=== PATIENT | female | born 1970 | race Caucasian/White ===

== ENCOUNTER 2016-06-11 09:12 | Emergency (ER) | payer BC ==
[2016-06-11 09:57] LABS: Basophils % (Auto) 0.3 % (0.0-1.8); Eosinophils % (Auto) 4.7 % (0.0-4.3); Hematocrit 40.3 % (30.3-42.9); Mean Corpuscular HGB Conc 32 % (30-34); Mean Corpuscular Hemoglobin 31 pg (28-32); Mean Corpuscular Volume 94 fl (79-97); Platelet Count 150 K/mm3 (140-440); Red Blood Count 4.27 M/mm3 (3.65-5.03); Red Cell Distribution Width 13.3 % (13.2-15.2); White Blood Count 8.3 K/mm3 (4.5-11.0)
[2016-06-11 10:15] LABS: Anion Gap 19 mmol/L; Blood Urea Nitrogen 12 mg/dL (7-17); Carbon Dioxide 21 mmol/L (22-30); Chloride 98.1 mmol/L (98-107); Glucose 103 mg/dL (65-100); Potassium 3.6 mmol/L (3.6-5.0); Sodium 134 mmol/L (137-145)
[2016-06-11 10:21] LABS: Bilirubin,Urine MOD (Negative); Blood,Urine NEG (Negative); Ketones,Urine TR mg/dL (Negative); Leukocyte Esterase,Urine MOD (Negative); Mucus,Urine 3+ /HPF; Nitrite,Urine NEG (Negative); Urobilinogen,Urine < 2.0 mg/dL (<2.0)
--- NOTE | 2016-06-11 10:41 | Emergency Department Report ---
ED General Adult HPI - General Chief complaint: Nausea/Vomiting/Diarrhea Stated complaint: SHAKING Time Seen by Provider: 06/11/16 10:39 Source: patient Mode of arrival: Ambulatory Limitations: No Limitations - History of Present Illness Initial comments: States that she has had nausea and vomiting which began last night. She says that she has some abdominal discomfort with vomiting only. She is not complaining of any pain now. She states that she might of had a chill. States that she took her temperature last night and it was 99 "something". She denies diarrhea. She denies any signs of GI bleeding. She states that she does not have anything like this before. She feels somewhat weak. The patient denies any medical history or surgery. She works at this facility. -: Gradual, hour(s) Associated Symptoms: denies other symptoms Treatments Prior to Arrival: none - Related Data Previous Rx's Medication Instructions Recorded Last Taken Type Ondansetron [Zofran Odt] 4 mg PO Q6H #7 tab.rapdis 06/11/16 Unknown Rx Allergies Allergy/AdvReac Type Severity Reaction Status Date / Time raw carrots Allergy Swelling Uncoded 07/11/15 12:38 soy milk Allergy Swelling Uncoded 07/11/15 12:38 ED Review of Systems ROS: Stated complaint: SHAKING Other details as noted in HPI Constitutional: denies: chills, fever Eyes: denies: eye pain, eye discharge, vision change ENT: denies: ear pain, throat pain Respiratory: denies: cough, shortness of breath, wheezing Cardiovascular: denies: chest pain, palpitations Endocrine: no symptoms reported Gastrointestinal: nausea, vomiting. denies: abdominal pain, diarrhea Genitourinary: denies: urgency, dysuria, discharge Musculoskeletal: denies: back pain, joint swelling, arthralgia Skin: denies: rash, lesions Neurological: denies: headache, weakness, paresthesias Psychiatric: denies: anxiety, depression Hematological/Lymphatic: denies: easy bleeding, easy bruising ED Past Medical Hx - Past Medical History Previous Medical History?: No - Surgical History Past Surgical History?: No - Social History Smoking Status: Never Smoker Substance Use Type: None - Medications Home Medications: Home Medications Medication Instructions Recorded Confirmed Last Taken Type Ondansetron [Zofran Odt] 4 mg PO Q6H #7 tab.rapdis 06/11/16 Unknown Rx ED Physical Exam - General Limitations: No Limitations General appearance: alert, in no apparent distress - Head Head exam: Present: atraumatic, normocephalic - Eye Eye exam: Present: normal appearance, PERRL, EOMI. Absent: scleral icterus - ENT ENT exam: Present: mucous membranes moist - Neck Neck exam: Present: normal inspection - Respiratory Respiratory exam: Present: normal lung sounds bilaterally. Absent: respiratory distress - Cardiovascular Cardiovascular Exam: Present: regular rate, normal rhythm. Absent: systolic murmur, diastolic murmur, rubs, gallop - GI/Abdominal GI/Abdominal exam: Present: soft, normal bowel sounds. Absent: distended, tenderness, guarding, rebound, rigid - Extremities Exam Extremities exam: Present: normal inspection - Back Exam Back exam: Present: normal inspection - Neurological Exam Neurological exam: Present: alert, oriented X3, CN II-XII intact. Absent: motor sensory deficit - Psychiatric Psychiatric exam: Present: normal affect, normal mood - Skin Skin exam: Present: warm, dry, intact, normal color. Absent: rash ED Course Vital Signs 06/11/16 06/11/16 06/11/16 09:36 10:45 11:23 Temperature 98.9 F Pulse Rate 74 79 Respiratory 16 16 16 Rate Blood Pressure 92/56 Blood Pressure 88/53 [Left] O2 Sat by Pulse 98 98 98 Oximetry 06/11/16 06/11/16 12:00 13:49 Temperature Pulse Rate 81 80 Respiratory 16 16 Rate Blood Pressure Blood Pressure 90/57 91/54 [Left] O2 Sat by Pulse 98 98 Oximetry - Reevaluation(s) Reevaluation #1: Liter of normal saline and Zofran. She stated that she felt better and she left. Her discharge was delayed by multiple critical care patients. 06/11/16 16:19 ED Medical Decision Making - Lab Data Result diagrams: 06/11/16 09:46 06/11/16 09:46 Laboratory Results - last 24 hr 06/11/16 06/11/16 06/11/16 09:40 09:46 09:46 WBC 8.3 RBC 4.27 Hgb 13.0 Hct 40.3 MCV 94 MCH 31 MCHC 32 RDW 13.3 Plt Count 150 Lymph % (Auto) 8.2 L [place] % (Auto) 6.8 Eos % (Auto) 4.7 H Baso % (Auto) 0.3 Lymph # 0.7 L [place] # 0.6 Eos # 0.4 Baso # 0.0 Seg Neutrophils % 80.0 H Seg Neutrophils # 6.6 Sodium 134 L Potassium 3.6 Chloride 98.1 Carbon Dioxide 21 L Anion Gap 19 BUN 12 Creatinine 0.6 L Estimated GFR > 60 BUN/Creatinine Ratio 20.00 Glucose 103 H POC Glucose 110 H Calcium 8.0 L HCG, Qual Urine Color Urine Turbidity Urine pH Urine Protein Urine Glucose (UA) Urine Ketones Urine Blood Urine Nitrite Urine Bilirubin Urine Ictotest Urine Urobilinogen Ur Leukocyte Esterase Urine WBC (Auto) Urine RBC (Auto) U Epithel Cells (Auto) Urine Mucus 06/11/16 06/11/16 09:46 Unknown WBC RBC Hgb Hct MCV MCH MCHC RDW Plt Count Lymph % (Auto) [place] % (Auto) Eos % (Auto) Baso % (Auto) Lymph # [place] # Eos # Baso # Seg Neutrophils % Seg Neutrophils # Sodium Potassium Chloride Carbon Dioxide Anion Gap BUN Creatinine Estimated GFR BUN/Creatinine Ratio Glucose POC Glucose Calcium HCG, Qual Negative Urine Color Arlene Urine Turbidity Slightly-cloudy Urine pH 5.0 Urine Protein 100 mg/dl Urine Glucose (UA) Neg Urine Ketones Tr Urine Blood Neg Urine Nitrite Neg Urine Bilirubin Mod Urine Ictotest Negative Urine Urobilinogen < 2.0 Ur Leukocyte Esterase Mod Urine WBC (Auto) 6.0 Urine RBC (Auto) 11.0 U Epithel Cells (Auto) 17.0 H Urine Mucus 3+ Critical care attestation.: If time is entered above; I have spent that time in minutes in the direct care of this critically ill patient, excluding procedure time. ED Disposition Clinical Impression: Hyponatremia, Volume depletion, Hypocalcemia Vomiting Qualifiers: Vomiting type: unspecified Vomiting Intractability: unspecified Nausea presence : with nausea Qualified Code(s): R11.2 - Nausea with vomiting, unspecified Disposition: DISCHARGED TO HOME OR SELFCARE Is pt being admited?: No Does the pt Need Aspirin: No Condition: Stable Instructions: Hyponatremia (ED) Additional Instructions: Follow up with primary care physician. He states fluids. Zofran if needed for nausea. Return any recurrent symptoms. Calcium was somewhat low. Should be rechecked with primary care. Prescriptions: Ondansetron [Zofran Odt] 4 mg PO Q6H #7 tab.rapdis Time of Disposition: 16:26
[2016-06-11] MEDS ORDERED: ZOFRAN IV ONE (10:45)
[2016-06-11] MEDS ORDERED: PROTONIX IV ONE (10:45)
[2016-06-11] MEDS ORDERED: NACL 0.9% 1000 ML 1,000 ML IV ONE (10:45)
[2016-06-11 11:08] LABS: Alanine Aminotransferase 16 units/L (7-56); Albumin/Globulin Ratio 1.2 %; Alkaline Phosphatase 63 units/L (35-129); Bilirubin,Total 0.8 mg/dL (0.1-1.2); Total Protein 7.3 g/dL (6.3-8.2)
[2016-06-11 11:09] LABS: Bilirubin,Direct < 0.2 mg/dL (0-0.2)
[2016-06-11 13:50] VITALS: BP 91/54
--- NOTE | 2016-06-11 14:00 | Admit Criteria Form ---
Admission Criteria Documentation: VOMITING Clinical Indications for Admission to Inpatient Care ( Place 'X' for any and all applicable criteria): Admission is indicated for ANY ONE of the following(1)(2)(3): [X]I. Inpatient admission required rather than observation care because of ANY ONE of the following: [ ]i) Hemodynamic instability that is severe or persistent [ ]ii) Vomiting that is severe or persistent [ ]iii) Severe electrolyte abnormalities requiring inpatient care [X]iv) Severe pain requiring acute inpatient management [ ]v) High fever or infection requiring inpatient admission as indicated by ANY ONE of the following(7)(8): [ ]1) Appropriate outpatient or observation care antimicrobial treatment unavailable, not effective, or not feasible [ ]2) Documented bacteremia [ ]3) Temp >104.9 degrees F (40.5 degrees C) (oral) [ ]4) Temp >103.1 degrees F (39.5 C) (oral) or <96.8 degrees F (36 C) (rectal) that does not respond to all emergency treatment measures [ ]vi) Acute renal failure [ ]vii) IV fluid to replace significant ongoing losses (greater than 3 L/m2 per day) [ ]viii) Parenteral nutrition regimen that must be implemented on inpatient basis [ ]ix) Other condition, treatment or monitoring requiring inpatient admission [ ]II. Complete or partial gastrointestinal obstruction [ ]III. Other cause of vomiting requiring hospitalization (eg, poisoning, increased intracranial pressure) [ ]IV. Vomiting due to significant metabolic derangement (eg, severe hypercalcemia, diabetic ketoacidosis) Extended stay beyond goal length of stay may be needed for(1)(4): [ ]a) Severe vomiting [ ]b) Persistent vomiting, vital sign changes, severe electrolyte imbalance , or diagnosed cause of vomiting that requires continued hospitalization (eg, gastrointestinal obstruction , increased intracranial pressure) [ ]c) Surgery to treat identified causes of vomiting (eg, bowel obstruction , intracranial process) [ ]d) Comorbid illness that requires inpatient care (eg, acute heart failure , renal failure) [ ]e) Need for inpatient endoscopy The original [facility] [email or web address] content created by [facility] has been revised. The portions of the content which have been revised are identified through the use of italic text or in bold, and [facility] has neither reviewed nor approved the modified material. All other unmodified content is copyright [facility]. Please see references footnoted in the original [facility] edition 2016
== END 2016-06-11 15:00 | disposition home or self-care (01) ==
LOC: ED 09:12
DX: E87.1 Hypo-osmolality and hyponatremia (principal); E86.9 Volume depletion, unspecified; E83.51 Hypocalcemia; R11.2 Nausea with vomiting, unspecified
CPT/HCPCS: 36415; 80048; 80074; 81001; 82962; 84703; 85025; 96361; 96374; 96375; 99284; C9113; J2405; J7030

== ENCOUNTER 2017-01-29 05:33 | Emergency (ER) | payer BC ==
--- NOTE | 2017-01-29 07:28 | XRay Report ---
Chest 2 views: Compared to 09/11/16. History: Cough. Findings: Normal cardiomediastinal silhouette. Trachea is midline. No consolidation, pneumothorax or pleural effusion. Impression: No acute cardiopulmonary findings.
[2017-01-29 08:27] VITALS: BP 112/64
--- NOTE | 2017-01-29 08:46 | Emergency Department Report ---
- General Chief Complaint: Upper Respiratory Infection Stated Complaint: COLD/FLU SX Source: patient Mode of arrival: Ambulatory Limitations: No Limitations - History of Present Illness Initial Comments: 46 y/o F with no significant PMHx presents with clear nasal congestion, sore throat, productive cough, fever, chills, and a sinus headache for the past 1 week. Pt states that she got her flu shot last week and since then she has been experiencing these symptoms. Pt states that she has been taking theraflu with no relief of the symptoms. No reported sick contacts. No chest pain, wheezing, or SOB reported. No nausea or vomiting reported. Pt denies a UPT today and states that her LMP was 01/07/17. NKDA. HERNÁNDEZ Complaint: fever, cough, sore throat, rhinorrhea, nasal congestion -: week(s) (1 week) Severity: moderate Severity scale (0 -10): 5 Consistency: constant Improves With: nothing Worsens With: nothing Associated Symptoms: fever, chills, headache, rhinorrhea, nasal congestion, sore throat, cough Treatments Prior to Arrival: other (theraflu) - Related Data Previous Rx's Medication Instructions Recorded Last Taken Type Ondansetron [Zofran Odt] 4 mg PO Q6H #7 tab.rapdis 06/11/16 Unknown Rx Azithromycin [Zithromax Z-CAREN] 250 mg PO DAILY #6 tablet 01/29/17 Unknown Rx Benzonatate [Tessalon Perles] 100 mg PO Q8HR #15 capsule 01/29/17 Unknown Rx Fluticasone [Flonase] 1 spray NS QDAY #1 bottle 01/29/17 Unknown Rx Allergies Allergy/AdvReac Type Severity Reaction Status Date / Time raw carrots Allergy Swelling Uncoded 07/11/15 12:38 soy milk Allergy Swelling Uncoded 07/11/15 12:38 ED Review of Systems ROS: Stated complaint: COLD/FLU SX Other details as noted in HPI Constitutional: chills, fever Eyes: denies: eye pain, eye discharge, vision change ENT: throat pain, congestion Respiratory: cough, other (no SOB or wheezing) Cardiovascular: denies: chest pain, palpitations Endocrine: no symptoms reported Gastrointestinal: denies: abdominal pain, nausea, diarrhea Genitourinary: denies: urgency, dysuria, discharge Musculoskeletal: denies: back pain, joint swelling, arthralgia Skin: denies: rash, lesions Neurological: denies: headache, weakness, paresthesias Psychiatric: denies: anxiety, depression ED Past Medical Hx - Past Medical History Previous Medical History?: No - Surgical History Past Surgical History?: No - Social History Smoking Status: Never Smoker - Medications Home Medications: Home Medications Medication Instructions Recorded Confirmed Last Taken Type Ondansetron [Zofran Odt] 4 mg PO Q6H #7 tab.rapdis 06/11/16 Unknown Rx Azithromycin [Zithromax Z-CAREN] 250 mg PO DAILY #6 tablet 01/29/17 Unknown Rx Benzonatate [Tessalon Perles] 100 mg PO Q8HR #15 capsule 01/29/17 Unknown Rx Fluticasone [Flonase] 1 spray NS QDAY #1 bottle 01/29/17 Unknown Rx ED Physical Exam - General Limitations: No Limitations General appearance: alert, in no apparent distress - Head Head exam: Present: atraumatic, normocephalic - Eye Eye exam: Present: normal appearance - ENT ENT exam: Present: other (there was clear nasal congestion noted in the nostrils , no TTP of the maxillary/frontal sinuses, PND noted at the back of the throat, no exudates ) - Neck Neck exam: Present: normal inspection, full ROM - Respiratory Respiratory exam: Present: other (intermittent coughing noted on exam) - Cardiovascular Cardiovascular Exam: Present: regular rate, normal rhythm. Absent: systolic murmur, diastolic murmur, rubs, gallop - GI/Abdominal GI/Abdominal exam: Present: soft, normal bowel sounds - Neurological Exam Neurological exam: Present: alert, oriented X3, normal gait - Psychiatric Psychiatric exam: Present: normal affect, normal mood - Skin Skin exam: Present: warm, dry, intact, normal color. Absent: rash ED Course Vital Signs 01/29/17 01/29/17 01/29/17 05:55 08:26 09:35 Temperature 98.2 F 98.2 F Pulse Rate 72 74 Respiratory 18 14 20 Rate Blood Pressure 121/72 Blood Pressure 112/64 [Right] O2 Sat by Pulse 100 100 98 Oximetry ED Medical Decision Making - Medical Decision Making I have ran a rapid strep, flu, and CXR at this time all of which were unremarkable given her symptoms for 1 week. Therefore, I have treated today for a URI. I have given her flonase and tessalon perles along with a z-caren. Pt was encouraged to drink lots of fluids and stay hydrated. She was given PCP follow-up. Pt was discharged in stable condition, no resp distress, alert and oriented, vitals stable. Pt denied UPT today in the ED. Critical care attestation.: If time is entered above; I have spent that time in minutes in the direct care of this critically ill patient, excluding procedure time. ED Disposition Clinical Impression: Cough Upper respiratory infection Qualifiers: URI type: unspecified viral URI Qualified Code(s): J06.9 - Acute upper respiratory infection, unspecified Disposition: TO HOME OR SELFCARE Is pt being admited?: No Does the pt Need Aspirin: No Condition: Stable Instructions: Benzonatate (By mouth), Azithromycin (By mouth), Upper Respiratory Infection (ED) Additional Instructions: Please be advised that the cough suppressant may cause some drowsiness. please take it as needed for the cough. Please take the antibiotic as directed. Follow-up with PCP within 3-5 days. Please return to the ED immediately with any fever, chills, chest pain, chest tightness, or SOB. Prescriptions: Azithromycin [Zithromax Z-CAREN] 250 mg PO DAILY #6 tablet Benzonatate [Tessalon Perles] 100 mg PO Q8HR #15 capsule Fluticasone [Flonase] 1 spray NS QDAY #1 bottle Referrals: [facility] [Outside] - 3-5 Days [facility] [Outside] - 3-5 Days PRIMARY CARE, [Primary Care Provider] - 3-5 Days Forms: Work/School Release Form(ED)
== END 2017-01-29 09:37 | disposition home or self-care (01) ==
LOC: ED 05:33
DX: J06.9 Acute upper respiratory infection, unspecified (principal); R05 Cough; Z91.018 Allergy to other foods; Z91.011 Allergy to milk products
CPT/HCPCS: 71020; 87116; 87400; 87430; 99283